=== PATIENT | male | born 1960 | race Caucasian/White ===

== ENCOUNTER → 2016-10-28 | Outpatient (CLI) | payer MEDICAID | LOC: FIMAGING 14:33 | PROVIDERS: ATTEND Family Medicine | DX: R05 Cough (principal); R06.2 Wheezing ==

== ENCOUNTER 2018-12-17 07:37 | Observation (INO) | payer MEDICAID | END 2018-12-18 11:40 | disposition home or self-care (01) | LOC: FSGY 07:37 → F3E 14:37 ==